=== PATIENT | male | born 1945 | race Caucasian/White ===

== ENCOUNTER 2017-03-25 09:00 | Outpatient (CLI) | payer OTHER ==
[2014-05-09 13:48] VITALS: BP 124/77
[2017-03-25 09:49] LABS: eGFR (African) > 60; eGFR (Non-African) > 60
== END 2017-03-25 09:02 ==
LOC: LAB 09:00
PROVIDERS: ATTEND Family Medicine
DX: E78.5 Hyperlipidemia, unspecified (principal); Z12.5 Encounter for screening for malignant neoplasm of prostate
CPT/HCPCS: 36415; 80053; 80061; G0103

== ENCOUNTER 2018-04-17 08:48 | Outpatient (CLI) | payer OTHER ==
[2014-05-09 13:48] VITALS: BP 124/77
[2018-04-17 09:36] LABS: eGFR (African) > 60; eGFR (Non-African) > 60
== END 2018-04-17 08:50 ==
LOC: LAB 08:48
PROVIDERS: ATTEND Family Medicine
DX: E78.2 Mixed hyperlipidemia (principal); Z12.5 Encounter for screening for malignant neoplasm of prostate
CPT/HCPCS: 36415; 80053; 80061; G0103

== ENCOUNTER 2018-08-16 12:55 | Outpatient (CLI) | payer OTHER ==
[2014-05-09 13:48] VITALS: BP 124/77
--- NOTE | 2018-08-16 15:32 | Diagnostic Imaging Report ---
TEETEE BAUER [facility] [id number] [facility] [address] [address] Report Submission Date: Aug 16, 2018 1:43:35 PM CDT Patient Study Name: CLEMENTINA PADILLA Date: Aug 16, 2018 1:08:25 PM CDT Modality Type: DX Gender: M Description: SPINE : 49 Institution: [facility] Physician: TEETEE BAUER Examination: Cervical spine History: PT STATES NECK PAIN X 2 MONTHS WITH NO KNOWN TRAUMA. (Hx) Comparison exams: None available Findings: 3 views of the cervical spine demonstrate normal height and alignment. No anterior compression. No abnormal listhesis. Scattered osteophytes. No odontoid abnormality. No prevertebral abnormality Impression: Degenerative changes. No acute appearing osseous abnormality Electronically signed on Aug 16, 2018 1:43:35 PM CDT by: Shiv STOKES
== END 2018-08-16 12:56 ==
LOC: RAD 12:55
PROVIDERS: ATTEND Family Medicine
DX: M54.2 Cervicalgia (principal)
CPT/HCPCS: 72040

== ENCOUNTER 2019-07-31 08:39 | Outpatient (CLI) | payer OTHER ==
[2014-05-09 13:48] VITALS: BP 124/77
[2019-07-31 09:24] LABS: HDL 62 mg/dL (>40); eGFR (Non-African) > 60
--- NOTE | 2019-08-01 14:46 | Diagnostic Imaging Report ---
TEETEE BAUER [facility] [address] [facility] [address] Report Submission Date: Jul 31, 2019 9:06:45 AM CDT Patient Study Name: CLEMENTINA PADILLA Date: Jul 31, 2019 8:50:15 AM CDT Modality Type: DX Gender: M Description: WRIST 3 VIEWS OR MORE : 49 Institution: [facility] Physician: TEETEE BAUER Exam: Left wrist. History: Pain. PA, lateral, oblique and ulnar deviation view of the left wrist are submitted. A well corticated bony density extends from the greater multangular carpal bone suggestive of an old bony avulsion. Narrowing, sclerosis and spurring at the 1st carpometacarpal joint is noted. No other signs of fracture or dislocation is seen. No other soft tissue abnormality is identified. Impression: Old bony avulsion off the greater multangular carpal bone. Arthritic changes at the 1st carpometacarpal joint. CT or MRI may be beneficial to further evaluate. Electronically signed on Jul 31, 2019 9:06:45 AM CDT by: Chinedu STOKES
== END 2019-07-31 08:41 ==
LOC: LAB 08:39
PROVIDERS: ATTEND Family Medicine
DX: Z12.5 Encounter for screening for malignant neoplasm of prostate (principal); M25.542 Pain in joints of left hand; E78.5 Hyperlipidemia, unspecified
CPT/HCPCS: 36415; 73110; 80053; 80061; 84153